=== PATIENT | male | born 2005 | race Two or more races ===

== ENCOUNTER 2024-09-19 15:48 | Emergency (ER) | payer OTHER ==
[~2024-09-19] VITALS: Ht 167.6 cm; Wt 64.0 kg
[2024-09-19 17:01] LABS: BASO % 0.6 % (0.1-1.2); EOS # 0.24 (0.04-0.54); EOS % 2.8 % (0.7-7.0); LYMPH # 1.85 (1.18-3.74); LYMPH % 21.5 % (19.3-53.1); MEAN PLATELET VOLUME 10.50 fl (9.4-12.4); MONO # 0.94 (0.24-0.82); MONO % 10.9 % (4.7-12.5); NEUT # 5.49 (1.56-6.13); NEUT % 63.9 % (34.0-71.1); RED CELL DISTRIBUTION WIDTH 12.6 % (11.6-14.4)
[2024-09-19 17:19] LABS: COVID-19 AG NEGATIVE (NEGATIVE)
== END 2024-09-19 18:40 | disposition home or self-care (01) ==
LOC: EMR PED 16:12 → ER 16:12 → EMR PED 18:40
DX: B34.9 Viral infection, unspecified (principal); Z20.822 Contact with and (suspected) exposure to COVID-19